=== PATIENT | female | born 1980 | race African-American/Black ===

== ENCOUNTER 2016-10-29 23:08 | Inpatient (IN) ==
[2016-10-29] MEDS ORDERED: LR 1,000 ML IV SCH (23:33)
[2016-10-29] MEDS ORDERED: LR 1,000 ML ONE (23:37)
[2016-10-30] MEDS ORDERED: BRETHINE SUBQ ONE (00:13)
[2016-10-30] MEDS ORDERED: ZOFRAN IV ONE (00:13)
[2016-10-30] MEDS ORDERED: NUBAIN IV ONE (00:13)
[2016-10-30] MEDS ORDERED: PEPCID PO ONE (09:38)
[2016-10-30] MEDS ORDERED: LR 1,000 ML IV SCH (09:38)
[2016-10-30] MEDS ORDERED: STADOL IV PRN (09:38)
[2016-10-30] MEDS ORDERED: ZOFRAN IV PRN ×5 (09:38→11:58)
[2016-10-30] MEDS ORDERED: LR 500 ML IV ONE (09:38)
[2016-10-30] MEDS ORDERED: TYLENOL PO PRN (09:38)
[2016-10-30] MEDS ORDERED: PEPCID PO PRN (09:38)
[2016-10-30] MEDS ORDERED: KEFZOL 1 GM/D5W 1 GM/50 ML IVPB IV PRN (09:38)
[2016-10-30] MEDS ORDERED: PEPCID IV PRN (09:38)
[2016-10-30] MEDS ORDERED: PITOCIN 30 UNITS/LR 30 UNITS/500 ML IV.SOLN IV SCH (09:38)
[2016-10-30] MEDS ORDERED: REGLAN PO ONE (09:38)
[2016-10-30] MEDS ORDERED: SODIUM CHLORIDE 0.9% INJ SCH (09:45)
[2016-10-30 09:47] LABS: MANUAL DIFF NEEDED? NO
[2016-10-30 09:49] LABS: BASO% 0.1 % (0.0-0.8); EOS# 0.06 X1000 (0.0-0.7); EOS% 0.7 % (0.0-10.0); HEMATOCRIT 34.7 % (37.0-47.0); HEMOGLOBIN 11.4 g/dL (12.0-16.0); IMM GRAN# 0.01 X1000 (0.0-0.04); IMM GRAN% 0.1 % (0.0-0.5); LYMPH# 2.66 X1000 (1.2-3.4); LYMPH% 31.4 % (20.5-51.1); MCH 26.8 PG (27-31); MCHC 32.9 g/dL (33-37); MCV 81.6 FL (81-99); MONO% 9.4 % (1.7-9.3); MPV 10.3 FL (7.4-10.4); NEUT% 58.3 % (42.2-75.2); PLT 282 X1000 (130-400); RBC 4.25 XMIL (4.2-5.4)
[2016-10-30] MEDS ORDERED: ZOFRAN ODT PO PRN ×2 (10:00→11:58)
[2016-10-30] MEDS ORDERED: BENADRYL IV PRN ×2 (10:00→11:58)
[2016-10-30] MEDS ORDERED: NARCAN INJ PRN ×2 (10:00→11:58)
[2016-10-30] MEDS ORDERED: PEPCID IV ONE (10:15)
[2016-10-30] MEDS ORDERED: SODIUM CHLORIDE 0.9% INJ ONE (10:15)
[2016-10-30] MEDS ORDERED: BICITRA PO ONE (10:15)
[2016-10-30] MEDS ORDERED: PITOCIN ONE ×2 (10:16→11:23)
[2016-10-30] MEDS ORDERED: NEO-SYNEPHRINE ONE (10:16)
[2016-10-30] MEDS ORDERED: DURAMORPH ONE (10:17)
[2016-10-30] MEDS ORDERED: SODIUM CHLORIDE 0.9% 10 ML ONE ×2 (10:23→10:25)
[2016-10-30 10:26] LABS: URINE SOURCE VOIDED
[2016-10-30] MEDS ORDERED: PERCOCET-5 PO PRN (10:32)
[2016-10-30] MEDS ORDERED: NORCO-5 PO PRN (10:32)
[2016-10-30] MEDS ORDERED: HYDROXYZINE PO PRN (10:32)
[2016-10-30] MEDS ORDERED: DULCOLAX PR PRN (10:32)
[2016-10-30] MEDS ORDERED: DEMEROL IM PRN (10:32)
[2016-10-30] MEDS ORDERED: AMBIEN PO PRN (10:32)
[2016-10-30] MEDS ORDERED: HYDROXYZINE IM PRN (10:32)
[2016-10-30] MEDS ORDERED: PITOCIN IM PRN (10:32)
[2016-10-30] MEDS ORDERED: MYLICON PO PRN (10:32)
[2016-10-30] MEDS ORDERED: M-M-R II VACCINE SUBQ ONE (10:32)
[2016-10-30] MEDS ORDERED: BOOSTRIX VACCINE IM ONE (10:32)
[2016-10-30] MEDS ORDERED: NORCO-10 PO PRN (10:32)
[2016-10-30] MEDS ORDERED: DEMEROL PO PRN ×2 (10:32)
[2016-10-30] MEDS ORDERED: PHENERGAN IM PRN (10:32)
[2016-10-30] MEDS ORDERED: PITOCIN 10 UNITS/LR 10 UNIT/1,000 ML IV.SOLN IV SCH (10:45)
[2016-10-30] MEDS ORDERED: ZOFRAN ONE (10:54)
[2016-10-30 11:18] LABS: UR AMPHETAMINES QUAL NONE DETECTED (NONE DETECT); UR BARBITUATES QUAL NONE DETECTED (NONE DETECT); UR BENZODIAZEPIN QUAL NONE DETECTED (NONE DETECT); UR CANNABINOIDS QUAL NONE DETECTED (NONE DETECT); UR COCAINE QUAL NONE DETECTED (NONE DETECT); UR MDMA QUAL NONE DETECTED (NONE DETECT); UR METHADONE QUAL NONE DETECTED (NONE DETECT); UR METHAMPHETAMINE QUAL PRESUMPTIVE POSITIVE (NONE DETECT); UR OPIATES QUAL NONE DETECTED (NONE DETECT); UR OXYCODONE QUAL NONE DETECTED (NONE DETECT); UR PCP QUAL NONE DETECTED (NONE DETECT); UR TCA QUAL NONE DETECTED (NONE DETECT)
[2016-10-30] MEDS ORDERED: LR 1,000 ML ONE (11:22)
[2016-10-30 11:27] LABS: BILIRUBIN URINE NEGATIVE (NEGATIVE); BLOOD URINE 4+ (NEGATIVE); CLARITY VERY CLOUDY (CLEAR); COLOR BROWN; GLUCOSE URINE NEGATIVE (NEGATIVE); LEUKOCYTES URINE 1+ (NEGATIVE); NITRITE URINE POSITIVE (NEGATIVE); PH URINE 6.5; PROTEIN URINE 2+(100 mg/dL) mg/dL (NEGATIVE); SP GRAVITY URINE 1.025; UROBILINOGEN URINE NORMAL
[2016-10-30] MEDS ORDERED: MORPHINE IV PRN (11:59)
[2016-10-30] MEDS: PITOCIN 20 UNITS/LR 20 UNITS/1,000 ML IV.SOLN IV ONE ×2 (12:00→17:49)
[2016-10-30] MEDS: OFIRMEV 1000 MG/ISOTONIC SOLN 1,000 MG/100 ML BOTTLE IV SCH ×3 (12:17→23:20)
[2016-10-30] MEDS: PERCOCET-10 PO PRN (14:35)
[2016-10-30] MEDS: MYLICON PO SCH ×3 (14:35→23:21)
[2016-10-30] MEDS: PERICOLACE PO SCH (23:21)
[2016-10-31 06:28] LABS: UR AMPHETAMINES QUAL NONE DETECTED (NONE DETECT); UR BARBITUATES QUAL NONE DETECTED (NONE DETECT); UR BENZODIAZEPIN QUAL NONE DETECTED (NONE DETECT); UR CANNABINOIDS QUAL NONE DETECTED (NONE DETECT); UR COCAINE QUAL NONE DETECTED (NONE DETECT); UR MDMA QUAL NONE DETECTED (NONE DETECT); UR METHADONE QUAL NONE DETECTED (NONE DETECT); UR METHAMPHETAMINE QUAL NONE DETECTED (NONE DETECT); UR OPIATES QUAL PRESUMPTIVE POSITIVE (NONE DETECT); UR OXYCODONE QUAL PRESUMPTIVE POSITIVE (NONE DETECT); UR PCP QUAL NONE DETECTED (NONE DETECT); UR TCA QUAL NONE DETECTED (NONE DETECT)
[2016-10-31 07:38] LABS: MANUAL DIFF NEEDED? NO
[2016-10-31 07:41] LABS: BASO% 0.1 % (0.0-0.8); EOS# 0.04 X1000 (0.0-0.7); EOS% 0.4 % (0.0-10.0); HEMATOCRIT 27.7 % (37.0-47.0); HEMOGLOBIN 9.2 g/dL (12.0-16.0); IMM GRAN# 0.02 X1000 (0.0-0.04); IMM GRAN% 0.2 % (0.0-0.5); LYMPH# 1.47 X1000 (1.2-3.4); MCH 26.9 PG (27-31); MCHC 33.2 g/dL (33-37); MONO# 0.81 X1000 (0.11-0.59); MONO% 8.3 % (1.7-9.3); MPV 9.3 FL (7.4-10.4); PLT 251 X1000 (130-400); RBC 3.42 XMIL (4.2-5.4)
[2016-10-31] MEDS: OFIRMEV 1000 MG/ISOTONIC SOLN 1,000 MG/100 ML BOTTLE IV SCH (07:44)
[2016-10-31] MEDS: PRECARE PO SCH (09:33)
[2016-10-31] MEDS: MYLICON PO SCH ×4 (09:34→21:52)
[2016-10-31] MEDS: PERCOCET-10 PO PRN ×4 (09:34→21:52)
[2016-10-31] MEDS ORDERED: D/C PCA XX ONE (10:29)
[2016-10-31] MEDS ORDERED: LR 1,000 ML IV SCH (10:32)
[2016-10-31] MEDS: MOTRIN PO PRN (14:41)
[2016-10-31] MEDS: PERICOLACE PO SCH (21:52)
[2016-11-01] MEDS: PERCOCET-10 PO PRN ×3 (01:29→17:50)
[2016-11-01] MEDS: MOTRIN PO PRN ×3 (01:29→20:22)
[2016-11-01] MEDS: MYLICON PO SCH ×4 (09:20→20:22)
[2016-11-01] MEDS: PRECARE PO SCH (09:20)
[2016-11-01] MEDS: PERICOLACE PO SCH (20:22)
[2016-11-02] MEDS: PERCOCET-10 PO PRN ×2 (05:13→14:01)
[2016-11-02] MEDS: MOTRIN PO PRN ×2 (05:13→14:00)
[2016-11-02] MEDS: PRECARE PO SCH (09:17)
[2016-11-02] MEDS: MYLICON PO SCH ×4 (09:17→20:59)
[2016-11-02] MEDS: PERICOLACE PO SCH (20:59)
[2016-11-03] MEDS: MOTRIN PO PRN ×2 (03:58→12:26)
[2016-11-03] MEDS: PERCOCET-10 PO PRN ×2 (03:59→12:26)
[2016-11-03] MEDS: MYLICON PO SCH ×2 (09:58→12:26)
[2016-11-03] MEDS: PRECARE PO SCH (09:58)
[2016-11-03 17:17] VITALS: BP 117/60
== END 2016-11-03 16:00 | disposition home or self-care (01) ==
LOC: P.OPLD 23:08 → P.LD 23:15
PROVIDERS: ADMIT Obstetrics & Gynecology; ATTEND Obstetrics & Gynecology